=== PATIENT | female | born 1990 | race Caucasian/White ===

== ENCOUNTER 2024-05-31 12:30 | Emergency (ER) | payer SELFPAY ==
[2024-05-31] VITALS (65 sets, daily range): BP systolic 105–150; BP diastolic 81–103; PULSE 69–124; TEMP 36.7–37.3; O2SAT 96–100; BMI 28.9
--- NOTE | 2024-05-31 12:49 | XR_ITS ---
The [address] [address] Patient Name: JULIAN MAYFIELD MRN: [id number] date: 1990 Sex: F Assigned Patient Location: ER Current Patient Location: ER Accession/Order Number: [id number] Exam Date: 05/31/2024 12:55 Report Date: 05/31/2024 13:42 At the request of: ADE CARLISLE Procedure: XR shoulder LT min 2V EXAM: XR shoulder LT min 2V HISTORY: fall, left shoulder pain COMPARISON: None. TECHNIQUE: AP Y-view left shoulder. FINDINGS: Humeral head prosthesis noted appears intact. No fracture seen. Shoulder appears dislocated anteriorly. Normal-appearing AC joint. No soft tissue calcification or displaced fragment. Lucencies seen in the proximal humerus adjacent to the prosthesis. Fine visualized left clavicle, left ribs and lung unremarkable. XR/XR shoulder LT min 2V IMPRESSION: The left humeral head prosthesis appears dislocated anteriorly. No fracture seen. Electronically authenticated by: GUME BROWN Date: 05/31/2024 13:42
[2024-05-31] MEDS: IBUPROFEN 600 MG TABLET PO (13:14)
--- NOTE | 2024-05-31 13:45 | ED_ITS ---
HPI HPI - Extremity Injury (Upper) General Chief Complaint: Extremity Injury, Upper Stated Complaint: UPPER EXTREMITY INJURY - FALL Time Seen by Provider: 05/31/24 12:38 Source: patient Mode of arrival: walk-in History of Present Illness HPI narrative: Patient presents with acute left shoulder pain after a fall at home. She states that she was carrying something as she entered her house, fell forward 100 outstretched left hand and as she tried to use her hand to catch her fall, she felt severe pain in the left shoulder and now it does not feel right . She initially told the triage nurse that she had some hand pain but refused x-rays. She denied any injury to the head, neck, torso or other extremities. She denied any loss of consciousness. When I talked her about her prior history, she told me that after cheerleading accident when she was a teen, she had to have surgery of the left shoulder because of a broken bone. It appears that she has had surgical replacement of the left humeral head. She is otherwise healthy, not on blood thinners or other prescribed meds. She told her that she did not have any prior history of intolerance to anesthetic medications. Related Data Home Medications ?Medication ?Instructions ?Recorded ?Confirmed No Known Home Medications 05/31/24 05/31/24 Allergies Allergy/AdvReac Type Severity Reaction Status Date / Time No Known Drug Allergies Allergy Verified 05/31/24 12:36 Opioid HPI Opioid Management Most Recent Pain and Opioid Data: Last JUL Pain Assessment 05/31/24 17:40 PFSH PFSH Social History Little interest or pleasure in doing things: not at all Feeling down, depressed, or hopeless: not at all Exam Narrative Exam Narrative: Nurses note and vital signs reviewed and patient is not hypoxic. afebrile General: The patient appears well and in no apparent distress. Patient is resting comfortably on cart. GCS = 15. Skin: Warm, dry, no pallor noted. Head: Normocephalic, atraumatic Neck: Supple, trachea mid-line, no tenderness, no lymphadenopathy. Full ROM and no cervical spinal tenderness. The patient has no step-offs or crepitus noted Eyes: PERRLA, EOMI ENT: No facial injury Cardiovascular: Normal peripheral perfusion of the left hand. Heart regular rate and rhythm Respiratory: Patient is in no distress, no accessory muscle use, lungs are clear to auscultation, no wheezing, rales or rhonchi Back: No thoracic vertebral or lumbar vertebral tenderness to palpation. No left scapular tenderness. Musculoskeletal: Left shoulder -deformity suggesting dislocation of the left upper extremity at the shoulder. Distally, there is no sign of long bone fracture, no left hand, left wrist, left forearm or left elbow tenderness or swelling. Pulses at left radius was 2+ Neurological: A&O x4, normal equal switch tender strength, normal finger to nose, normal speech, normal coordination, normal motor, normal sensory. Psychiatric: Cooperative Constitutional Vital Signs, click to edit/add: Last Vital Signs Temp 98.0 F 05/31/24 15:03 Pulse 84 05/31/24 16:50 Resp 24 H 05/31/24 16:50 BP 150/94 H 05/31/24 16:30 Pulse Ox 98 05/31/24 16:50 Course Vital Signs Vital signs: Vital Signs Temperature 99.2 F 05/31/24 12:36 Pulse Rate 81 05/31/24 12:36 Respiratory Rate 16 05/31/24 12:36 Blood Pressure 142/99 H 05/31/24 12:36 Pulse Oximetry 100 05/31/24 12:36 Temperature 98.0 F 05/31/24 15:03 Pulse Rate 84 05/31/24 16:50 Respiratory Rate 24 H 05/31/24 16:50 Blood Pressure 150/94 H 05/31/24 16:30 Pulse Oximetry 98 05/31/24 16:50 MDM - Extremity Injury (Upper) MDM Narrative Medical decision making narrative: X-ray reveal anterior dislocation of the left humeral head prosthesis. No fractures noted. I spoke to the patient about her diagnosis and she gave verbal consent for closed reduction of the left humeral head dislocation under sedation. Risks and benefits were explained to the patient and she also gave written consent. Patient was placed on cardiac cath technician and peripheral IV was ordered to be obtained. We are unable to establish peripheral IV access, therefore the patient was given oral dissolvable Zofran, IM Dilaudid and then once her pain was improved she received IM ketamine at 1 mg/kg to ensure she had no allergy and then given additional 110mg ketamine IM. I was unable to reduce the left shoulder initially as I could not achieve adequate analgesia and sedation. We waited about 30 minutes and then gave versed 5mg IM and additional 250mg IM ketamine and achieved adequate sedation which allowed me to reduce the shoulder. Sling and swath applied to the left shoulder. She remained on the cardiac cath technician and had stable vitals during reduction attempts. She did complain of pain to the left UE afterward and was given Percocet. Despite that she continued to complain of pain in the left shoulder. Repeat x- ray revealed that the shoulder had slipped out and is unstable. Call placed to [facility] to discuss transfer. I also discussed the case with Dr Rosen, who agrees with tertiary facility transfer. I spoke with dr Mcgraw who accepted an ER to ER transfer and Dr Del Rosario (ER Doc) was also made aware. Pt was agreeable to transfer after the reasoning was explained. Imaging Data xr shoulder: Radiologist's impression: ITS Impressions Shoulder X-Ray 05/31/24 12:49 IMPRESSION: The left humeral head prosthesis appears dislocated anteriorly. No fracture seen. Electronically authenticated by: GUME BROWN Date: 05/31/2024 13:42 Shoulder X-Ray 05/31/24 16:35 IMPRESSION: There appears to have been successful reduction of the previously dislocated glenohumeral joint. There is a prosthetic humeral head that appears to be in good position. No displaced fracture is clearly identified. Electronically authenticated by: SHANTELL PARSONS Date: 05/31/2024 17:49 Discharge Plan Discharge Chief Complaint: Extremity Injury, Upper Clinical Impression: Dislocation of shoulder region Patient Disposition: [facility] Time of Disposition Decision: 17:03 Discharge Location: [facility]
[2024-05-31] MEDS: HYDROMORPHONE HCL 1 MG/ML CARTRIDGE IVP (14:45)
[2024-05-31] MEDS: ONDANSETRON 4 MG RAPDIS TABLET SL (14:45)
[2024-05-31] MEDS: KETAMINE HCL 500 MG/5 ML VIAL 55 MG IM (15:03)
[2024-05-31] MEDS: KETAMINE HCL 500 MG/5 ML VIAL 110 MG IM (15:21)
[2024-05-31] MEDS: PROMETHAZINE HCL 25 MG/ML VIAL 12.5 MG IM (15:26)
--- NOTE | 2024-05-31 16:35 | XR_ITS ---
The [address] [address] Patient Name: JULIAN MAYFIELD MRN: [id number] date: 1990 Sex: F Assigned Patient Location: ER Current Patient Location: Accession/Order Number: [id number] Exam Date: 05/31/2024 16:40 Report Date: 05/31/2024 18:29 At the request of: ADE CARLISLE Procedure: XR shoulder LT min 2V LEFT SHOULDER X-RAYS, 05/31/2024. HISTORY: Left shoulder dislocation. COMPARISON: Left shoulder x-rays, 05/31/2024. FINDINGS: 2 views obtained. There has been successful reduction of the previously dislocated glenohumeral joint. There is a humeral head prosthesis. No displaced fracture identified. XR/XR shoulder LT min 2V IMPRESSION: There appears to have been successful reduction of the previously dislocated glenohumeral joint. There is a prosthetic humeral head that appears to be in good position. No displaced fracture is clearly identified. Electronically authenticated by: SHANTELL PARSONS Date: 05/31/2024 18:29
[2024-05-31] MEDS: KETAMINE HCL 500 MG/5 ML VIAL 250 MG IM (17:00)
[2024-05-31] MEDS: MIDAZOLAM HCL 2 MG/2 ML VIAL 5 MG IM (17:04)
--- NOTE | 2024-05-31 17:29 | XR_ITS ---
The [address] [address] Patient Name: JULIAN MAYFIELD MRN: [id number] date: 1990 Sex: F Assigned Patient Location: ER Current Patient Location: ER Accession/Order Number: [id number] Exam Date: 05/31/2024 17:35 Report Date: 05/31/2024 18:58 At the request of: ADE CARLISLE Procedure: XR shoulder LT 1V LEFT SHOULDER X-RAYS, 05/31/2024. HISTORY: Shoulder dislocation. Postreduction. COMPARISON: Left shoulder x-rays, 05/31/2024. FINDINGS: Single view was obtained. There has been successful reduction of the previously dislocated glenohumeral joint. Prosthetic humeral head again noted. No acute fracture. XR/XR shoulder LT 1V IMPRESSION: Alignment appears normal. No fracture identified. Prosthetic humeral head again noted and appears to be in good position. Electronically authenticated by: SHANTELL PARSONS Date: 05/31/2024 18:58
[2024-05-31] MEDS: OXYCODONE HCL/ACETAMINOPHEN 5MG/325MG 2 TAB PO (17:40)
[2024-05-31] MEDS: ORPHENADRINE 60 MG/ 2 ML VIAL IV (19:50)
[2024-05-31] MEDS: ONDANSETRON PF 4 MG/2 ML VIAL IV (19:59)
[2024-05-31] MEDS: HYDROMORPHONE HCL 1 MG/ML CARTRIDGE IV (20:15)
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
--- NOTE | 2024-05-31 20:47 | PC.NURSE ---
Per bhavik ahuja patient was given number for the [facility] and [facility].
--- NOTE | 2024-05-31 20:51 | ED.UPPEXIN1 ---
HPI HPI - Extremity Injury (Upper) General Chief Complaint: Extremity Injury, Upper Stated Complaint: UPPER EXTREMITY INJURY - FALL Time Seen by Provider: 05/31/24 12:38 Source: patient Mode of arrival: walk-in History of Present Illness HPI narrative: This 33-year-old female was awaiting transfer to [facility] for a shoulder dislocation that was reduced and then dislocated again. According to Dr. Bailey she was very difficult to sedate for the procedure and immediately after a successful reduction it popped back out. She had ongoing request for pain medication. Patient was seen and evaluated. An US guided IV was able to be placed into her right upper arm which revealed that she had bruising in this area from a prior US guided IV. She is resting comfortably on the stretcher. Her vital signs are stable. She states that she fell earlier today and popped her shoulder out. I asked her if she has chronically dislocated shoulders and she says no this was from a fall. I did review her [facility] report in which she received 12 Percocet and 20 oxycodone from 2 different providers; 1 is in the emergency department physician at [facility] and 1 is a PA with [facility] orthopedics. I discussed this with her and she initially denied that she had these medications. I asked her frankly if she is addicted to pain medication and she says no. I explained to her that she would not be getting additional IV pain medication in this emergency department while I am in charge. She verbalized understanding of this and then requested to speak to a counselor. She denied to her nurse that she was being abused. The patient had refused to give registration any information including her address, Social Security number or ID. Ultimately she produced a passport that shows that she is from [place]. We were able to find her on [employer]. She is no longer a missing person. In the emergency department she had multiple requests for narcotic pain medication. I explained to her that without any form of ID and receiving 32 Percocet yesterday she would have to provide ID etc. before additional medications were given to her at which time she was able to provide her passport. She has been ambulatory in the emergency department without any sign of distress. She will be given 1 dose of Percocet for her transport to [facility]. Related Data Home Medications ?Medication ?Instructions ?Recorded ?Confirmed No Known Home Medications 05/31/24 05/31/24 Allergies Allergy/AdvReac Type Severity Reaction Status Date / Time No Known Drug Allergies Allergy Verified 05/31/24 12:36 Opioid HPI Opioid Management Most Recent Pain and Opioid Data: Last Pain Scale 9 05/31/24 23:57 05/31/24 PFSH PFSH Social History Little interest or pleasure in doing things: not at all Feeling down, depressed, or hopeless: not at all Exam Constitutional Vital Signs, click to edit/add: Last Vital Signs Temp 98.0 F 05/31/24 15:03 Pulse 78 05/31/24 22:20 Resp 15 05/31/24 22:20 BP 135/97 H 05/31/24 22:10 Pulse Ox 98 05/31/24 17:50 Course Vital Signs Vital signs: Vital Signs Temperature 99.2 F 05/31/24 12:36 Pulse Rate 81 05/31/24 12:36 Respiratory Rate 16 05/31/24 12:36 Blood Pressure 142/99 H 05/31/24 12:36 Pulse Oximetry 100 05/31/24 12:36 Temperature 98.0 F 05/31/24 15:03 Pulse Rate 78 05/31/24 22:20 Respiratory Rate 15 05/31/24 22:20 Blood Pressure 135/97 H 05/31/24 22:10 Pulse Oximetry 98 05/31/24 17:50 Discharge Plan Discharge Chief Complaint: Extremity Injury, Upper Clinical Impression: Dislocation of shoulder region Patient Disposition: [facility] Time of Disposition Decision: 17:03 Discharge Location: [facility]
[2024-05-31] MEDS: OXYCODONE HCL/ACETAMINOPHEN 5MG/325MG 1 TAB PO (23:57)
[2024-06-01] VITALS: PULSE 109
[2024-06-01 00:10] VITALS: PULSE 108
[2024-06-01 00:28] VITALS: O2SAT 98
[2024-06-01 00:29] VITALS: BP 139/101; O2SAT 97
== END 2024-06-01 00:47 | disposition short-term general hospital (02) ==
PROVIDERS: Emergency Provider Emergency Medicine
DX: S43.015A Anterior dislocation of left humerus, initial encounter (principal); W18.39XA Other fall on same level, initial encounter
CPT/HCPCS: 23650; 73020; 73030; 96372; 96374; 96375; 96376; 99152; 99285; J1171; J2250; J2360; J2405; J2550; Q0162